=== PATIENT | female | born 1930 | race Caucasian/White ===

== ENCOUNTER 2017-06-08 00:50 | Emergency (ER) | payer MEDICARE, OTHER ==
[~2017-06-08] VITALS: Ht 154.9 cm; Wt 40.0 kg
[~2017-06-08 00:50] MED LIST: AMLO2.5T PO; ASPI-183 PO; BENZ1CAP34 PO; IPRAAER INH; IPRAAER NASAL; PRAV40TA PO; PRIM50 PO; PRIM50TA PO; PROP10TA6 PO; SERT-132 PO; SPIRCAP INH
[2017-06-08] MEDS ORDERED: DILT120C50 PO (01:00)
[2017-06-08 01:01] VITALS: BP 173/85; PULSE 108; RESP 18; TEMP 98; O2SAT 96
[2017-06-08] MEDS ORDERED: ALBU0.63 NEB (01:01)
[2017-06-08 01:10] VITALS: O2SAT 97
[2017-06-08 01:26] LABS: BILIRUBIN, URINE NEG (NEG); BLOOD, URINE SMALL (NEG); GLUCOSE,URINE NEG (NEG); KETONE, URINE 15 mg/dL (NEG); NITRITE,URINE NEG (NEG); URINE LEUKOCYTE ESTERASE NEG (NEG)
[2017-06-08 01:29] LABS: AUTOMATED NEUTROPHIL # 11.9 TH/MM3 (1.8-7.7); BASOPHIL # 0.1 TH/MM3 (0-0.2); BASOPHIL % 0.7 % (0.0-2.0); EOSINOPHIL # 0.1 TH/MM3 (0-0.4); EOSINOPHIL % 0.6 % (0.0-4.0); HEMATOCRIT 36.9 % (35.0-46.0); HEMOGLOBIN 12.1 GM/DL (11.6-15.3); LYMPH % 1.5 % (9.0-44.0); LYMPHOCYTE # 0.2 TH/MM3 (1.0-4.8); MEAN CELL VOLUME 91.6 FL (80.0-100.0); MEAN CORPUSCULAR HEMOGLOBIN 30.1 PG (27.0-34.0); MEAN CORPUSCULAR HGB CONC 32.8 % (32.0-36.0); MEAN PLATELET VOLUME 8.7 FL (7.0-11.0); MONO % 3.1 % (0.0-8.0); MONOCYTE # 0.4 TH/MM3 (0-0.9); NEUT % 94.1 % (16.0-70.0); PLATELET COUNT 165 TH/MM3 (150-450); RED BLOOD COUNT 4.03 MIL/MM3 (4.00-5.30); RED CELL DISTRIBUTION WIDTH 13.3 % (11.6-17.2); WHITE BLOOD COUNT 12.7 TH/MM3 (4.0-11.0)
[2017-06-08 01:30] LABS: SQUAMOUS EPITHELIAL CELL URINE 0-5 /hpf (0-5); URINE COLOR YELLOW (YELLW/STRAW); WBC, URINE 0-2 /hpf (0-5)
[2017-06-08 01:33] LABS: CHLORIDE 102 MEQ/L (98-107); SODIUM (NA) 138 MEQ/L (136-145)
[2017-06-08 01:36] LABS: CALCIUM 7.8 MG/DL (8.5-10.1)
[2017-06-08 01:37] LABS: ALBUMIN 3.3 GM/DL (3.4-5.0); BICARBONATE 28.3 MEQ/L (21.0-32.0); BLOOD UREA NITROGEN 15 MG/DL (7-18); GLUCOSE,RANDOM 109 MG/DL (74-106); LIPASE 102 U/L (73-393)
[2017-06-08 01:40] LABS: ALT (GPT) 18 U/L (10-53); AST (GOT) 18 U/L (15-37); GLOMERULAR FILTRATION RATE 117 ML/MIN (>89)
[2017-06-08 01:41] LABS: TOTAL BILIRUBIN ADULT 0.5 MG/DL (0.2-1.0); TOTAL PROTEIN 6.4 GM/DL (6.4-8.2)
[2017-06-08 01:43] LABS: ALKALINE PHOSPHATASE 66 U/L (45-117)
[2017-06-08] MEDS ORDERED: MELO7.5T27 PO (02:16)
[2017-06-08] MEDS ORDERED: SODIUM CHLOR 0.9% 1000 ML INJ 1,000 ML IV ONE (02:45)
[2017-06-08] MEDS ORDERED: IOHEXOL 350 MG/ML 10 ML VIAL (for RAD DIAG) IVCONTRAST ONE (02:45)
[2017-06-08 03:10] VITALS: BP 168/84; PULSE 102; RESP 18; O2SAT 97
--- NOTE | 2017-06-08 03:24 | PD ---
HPI Chief Complaint: GI Complaint Time Seen by Provider: 00:53 Travel History International Travel<30 days: No Contact w/Intl Traveler<30days: No Traveled to known affect area: No History of Present Illness HPI This is an 86-year-old female who presents to the emergency Department with onset of nausea vomiting diarrhea and abdominal pain that started 2 hours prior to arrival abruptly. She says during that 2 hours she was unable to get off the toilet because she was having copious watery diarrhea, constant, severe, associated with multiple episodes of vomiting and abdominal cramping. Her is just recovering from a similar illness. She denies any recent antibiotic use. She is at a hysterectomy and an appendectomy in the past. PFSH Past Medical History Arthritis: No Asthma: No Autoimmune Disease: No Anxiety: No Depression: No Cancer: Yes (LUNG) Cardiovascular Problems: No COPD: Yes Cerebrovascular Accident: No Diabetes: No Diminished Hearing: No Endocrine: No GERD: No Genitourinary: No Hiatal Hernia: No Hypertension: Yes Kidney Stones: No Neurologic: No Psychiatric: No Reproductive: No Respiratory: Yes (bronchiectasis) Immunizations Current: No Migraines: No Renal Failure: No Sickle Cell Disease: No Sleep Apnea: No Thyroid Disease: No Ulcer: No Tetanus Vaccination: < 5 Years Influenza Vaccination: Yes ?: Not Past Surgical History Abdominal Surgery: No Appendectomy: Yes Cardiac Surgery: No Ear Surgery: No Endocrine Surgery: No Eye Surgery: No Genitourinary Surgery: No Gynecologic Surgery: No Hysterectomy: Yes Oral Surgery: No Pacemaker: Yes (BIOTRONIK ) Thoracic Surgery: No Social History Alcohol Use: No Tobacco Use: No Substance Use: No Allergies-Medications (Allergen,Severity, Reaction): Coded Allergies: Sulfa (Sulfonamide Antibiotics) (Unverified Allergy, Unknown, Rash, ) codeine (Unverified Allergy, Unknown, N/V, 06/08/17) penicillin G (Unverified Allergy, Unknown, Hives, 06/08/17) MRI PRECAUTION (Verified Adverse Reaction, Unknown, MRI CONDITIONAL PACEMAKER 04/24/16 KMD, 06/08/17) BIOTRONIK ELUNA 8 DR-T PACEMAKER WITH TWO SETROX S LEADS IMPLANTED 01/22/16 Reported Meds & Prescriptions Reported Meds & Active Scripts Active Pravachol (Pravastatin) 40 Mg Tab 40 Mg PO HS 30 Days Aspirin 325 Mg Tab 325 Mg PO DAILY 30 Days Reported Meloxicam 7.5 Mg Tab 7.5 Mg PO DAILY Albuterol Neb (Albuterol Sulfate) 0.63 Mg/3 Ml Neb 0.83 Mg NEB Q6HR NEB PRN Diltiazem CD 24 HR 120 Mg Caper 120 Mg PO DAILY Propranolol (Propranolol HCl) 10 Mg Tab 10 Mg PO BID Mysoline (Primidone) 50 Mg Tab 25 Mg PO DAILY Review of Systems Except as stated in HPI: all other systems reviewed are Neg Physical Exam Narrative GENERAL:Well appearing, no acute distress SKIN: Focused skin assessment warm and dry. HEAD: Atraumatic. Normocephalic. EYES: Pupils equal and round. No injection or drainage. ENT: Moist mucous membranes NECK: Trachea midline. CARDIOVASCULAR: Regular rate and rhythm. No murmur appreciated. RESPIRATORY: Clear to auscultation. Breath sounds equal bilaterally. GASTROINTESTINAL: Abdomen soft, tender to palpation in the lower abdomen with no rebound/guarding MUSCULOSKELETAL: No obvious deformities. NEUROLOGICAL: Awake and alert. No obvious cranial nerve deficits. Moving all extremities PSYCHIATRIC: Appropriate mood and affect; insight and judgment normal. Data Data Last Documented VS Vital Signs Date Time Temp Pulse Resp B/P (MAP) Pulse Ox O2 Delivery O2 Flow Rate FiO2 06/08/17 03:10 102 18 168/84 (112) 97 Room Air 06/08/17 01:01 98.0 Orders Orders Complete Blood Count With Diff (06/08/17 01:07) Comprehensive Metabolic Panel (06/08/17 01:07) Urinalysis - C+S If Indicated (06/08/17 01:14) Iv Access Insert/Monitor (06/08/17 01:14) Oxygen Administration (06/08/17 01:14) Oximetry (06/08/17 01:14) Lipase (06/08/17 01:07) Ct Abd/Pel W Iv Contrast(Rout) (06/08/17 ) Sodium Chlor 0.9% 1000 Ml Inj (Ns 1000 M (06/08/17 02:45) Iohexol 350 Inj (Omnipaque 350 Inj) (06/08/17 02:45) Labs Laboratory Tests Test 06/08/17 01:10 White Blood Count 12.7 TH/MM3 Red Blood Count 4.03 MIL/MM3 Hemoglobin 12.1 GM/DL Hematocrit 36.9 % Mean Corpuscular Volume 91.6 FL Mean Corpuscular Hemoglobin 30.1 PG Mean Corpuscular Hemoglobin Concent 32.8 % Red Cell Distribution Width 13.3 % Platelet Count 165 TH/MM3 Mean Platelet Volume 8.7 FL Neutrophils (%) (Auto) 94.1 % Lymphocytes (%) (Auto) 1.5 % Monocytes (%) (Auto) 3.1 % Eosinophils (%) (Auto) 0.6 % Basophils (%) (Auto) 0.7 % Neutrophils # (Auto) 11.9 TH/MM3 Lymphocytes # (Auto) 0.2 TH/MM3 Monocytes # (Auto) 0.4 TH/MM3 Eosinophils # (Auto) 0.1 TH/MM3 Basophils # (Auto) 0.1 TH/MM3 CBC Comment DIFF FINAL Differential Comment Urine Color YELLOW Urine Turbidity CLEAR Urine pH 7.0 Urine Specific [place] 1.015 Urine Protein NEG mg/dL Urine Glucose (UA) NEG mg/dL Urine Ketones 15 mg/dL Urine Occult Blood SMALL Urine Nitrite NEG Urine Bilirubin NEG Urine Leukocyte Esterase NEG Urine RBC 3-5 /hpf Urine WBC 0-2 /hpf Urine Squamous Epithelial Cells 0-5 /hpf Urine Bacteria NONE /hpf Microscopic Urinalysis Comment CULT NOT INDICATED Blood Urea Nitrogen 15 MG/DL Creatinine 0.50 MG/DL Random Glucose 109 MG/DL Total Protein 6.4 GM/DL Albumin 3.3 GM/DL Calcium Level 7.8 MG/DL Alkaline Phosphatase 66 U/L Aspartate Amino Transf (AST/SGOT) 18 U/L Alanine Aminotransferase (ALT/SGPT) 18 U/L Total Bilirubin 0.5 MG/DL Sodium Level 138 MEQ/L Potassium Level 3.9 MEQ/L Chloride Level 102 MEQ/L Carbon Dioxide Level 28.3 MEQ/L Anion Gap 8 MEQ/L Estimat Glomerular Filtration Rate 117 ML/MIN Lipase 102 U/L [facility] Medical Decision Making Medical Screen Exam Complete: Yes Emergency Medical Condition: Yes Interpretation(s) Mild leukocytosis Differential Diagnosis Colitis, gastroenteritis, appendicitis, dehydration, electrolyte abnormality Narrative Course This is an 86-year-old female who presents to the emergency department with nausea vomiting diarrhea and abdominal discomfort. Her was sick with similar symptoms suggesting there is viral etiology. She was quite tender on abdominal exam to labs and a CT abdomen and pelvis were obtained. CT is unremarkable. Labs are reassuring with no evidence of dehydration. Patient was given 2 L of IV fluid and Zofran and she feels much better. I think she can be discharged home with symptomatic management. Diagnosis Primary Impression: Gastroenteritis Patient Instructions: General Instructions Additional Instructions: If you develop lightheadedness, dizziness, persistent vomiting, inability to eat , or severe abdominal pain return to the emergency department. Followup with your primary care physician in 2-3 days if your symptoms have not resolved. Wash your hands agressively after using the restroom as to not spread your illness to others. Do not return to work until your symptoms have resolved. Take Zofran as needed for nausea. Med/Other Pt SpecificInfo: Prescription(s) given Scripts Loperamide (Loperamide) 2 Mg Cap 2 MG PO DIRECTED Y for DIARRHEA, #12 CAP 0 Refills One capsule after each loose stool. Not to exceed 8 capsules per day. Prov: Hiwot Nix MD 06/08/17 Ondansetron Odt (Zofran Odt) 4 Mg Tab 4 MG SL Q6HR Y for Nausea/Vomiting, #15 TAB 0 Refills Prov: Hiwot Nix MD 06/08/17 Disposition: DISCHARGE HOME Condition: Stable Hiwot Nix MD Jun 08, 2017 03:24
--- NOTE | 2017-06-08 04:41 | RADRPT ---
EXAM DATE/TIME: 06/08/2017 02:48 [place] COMPARISON: No previous studies available for comparison. INDICATIONS : Nausea, vomiting, diarrhea for 1 day. IV CONTRAST: 70 cc Omnipaque 350 (iohexol) IV ORAL CONTRAST: No oral contrast ingested. RADIATION DOSE: 3.14 CTDIvol (mGy) MEDICAL HISTORY : Carcinoma, lung. Hypertension. Chronic obstructive pulmonary disease. SURGICAL HISTORY : Appendectomy. Hysterectomy.Pacemaker. ENCOUNTER: Initial ACUITY: 1 day PAIN SCALE: 4/10 LOCATION: abdomen TECHNIQUE: Volumetric scanning of the abdomen and pelvis was performed. Using automated exposure control and ad justment of the mA and/or kV according to patient size, radiation dose was kept as low as reasonably achievable to obtain optimal diagnostic quality images. DICOM format image data is available electro nically for review and comparison. FINDINGS: LOWER LUNGS: Slight scarring, interstitial thickening and bronchiectasis in the lung bases. LIVER: Several cysts, largest a 3.4 cm cyst adjacent to the gallbladder fossa. No suspicious mass. No biliar y ductal dilatation. SPLEEN: Small splenule adjacent to lower edge of the spleen. Normal size with no suspicious mass. PANCREAS: Within normal limits. KIDNEYS: Normal in size and shape. There is no mass, stone or hydronephrosis. ADRENAL GLANDS: Within normal limits. VASCULAR: There is no aortic aneurysm. BOWEL/MESENTERY: The stomach, small bowel, and colon demonstrate no acute abnormality. There is no free intraperitone al air or fluid. ABDOMINAL WALL: Within normal limits. RETROPERITONEUM: There is no lymphadenopathy. BLADDER: No wall thickening or mass. REPRODUCTIVE: Uterus surgically absent. No evidence of pelvic mass or free fluid. INGUINAL: There is no lymphadenopathy or hernia. MUSCULOSKELETAL: Within normal limits for patient age. CONCLUSION: No acute CT findings in the abdomen or pelvis Jonathon Licea MD on June 08, 2017 at 4:37 Board Certified Radiologist. This report was verified electronically.
[2017-06-08] MEDS ORDERED: LOPE2CAP PO ×2 (04:47→04:49)
[2017-06-08] MEDS ORDERED: ZOFR4TAB3 SL ×2 (04:47→04:49)
[2017-06-08] MEDS ORDERED: ACETAMINOPHEN 500 MG CPLT PO ONE (05:00)
[2017-06-08 05:13] VITALS: BP 166/80; PULSE 89; RESP 18; O2SAT 97
== END 2017-06-08 05:15 | disposition home or self-care (01) ==
LOC: PHED 00:50
DX: K52.9 Noninfective gastroenteritis and colitis, unspecified (principal); R10.9 Unspecified abdominal pain; J44.9 Chronic obstructive pulmonary disease, unspecified; I10 Essential (primary) hypertension
CPT/HCPCS: 74177; 80053; 81001; 83690; 85025; 96360; 99285; J7030; Q9967

== ENCOUNTER 2017-10-19 00:36 | Emergency (ER) | payer MEDICARE, OTHER | END 2017-10-19 02:35 | disposition home or self-care (01) | LOC: PHED 00:36 | DX: S00.83XA Contusion of other part of head, initial encounter (principal); S30.810A Abrasion of lower back and pelvis, initial encounter; R51 Headache; R42 Dizziness and giddiness; J44.9 Chronic obstructive pulmonary disease, unspecified; I10 Essential (primary) hypertension; W18.30XA Fall on same level, unspecified, initial encounter; Z79.82 Long term (current) use of aspirin; Z79.51 Long term (current) use of inhaled steroids | CPT/HCPCS: 70450; 99283-25 ==